=== PATIENT | female | born 1995 | race Two or more races ===

== ENCOUNTER 2021-08-25 20:19 | Emergency (ER) | payer SELFPAY ==
[~2021-08-25] VITALS: Ht 167.6 cm; Wt 63.6 kg
[2021-08-26 00:22] LABS: BILIRUBIN,URINE SMALL (NEG); CLARITY,URINE CLOUDY; COLOR,URINE AMBER; NITRITE,URINE NEGATIVE (NEG); PH,URINE 5.5 (<5.0-8.0); PROTEIN,URINE 100 mg/dL (NEG-TRACE)
--- NOTE | 2021-08-26 00:37 | PHYS DOC ---
General Adult EDM: Chief Complaint: VAGINAL BLEEDING HPI: HPI: Patient is a 25 year-old female patient 2 para 1 currently 6 weeks presenting to the ED today complaining of vaginal bleeding that began yesterday. Patient states it began as spotting and now it is picked up S2 blood clots. Patient denies using more than 1 feminine pad an hour. Denies any abdominal pain or back pain. (THOR UP APRN) Review of Systems: Review of Systems: Constitutional: Denies fever or chills. [] Cardiovascular: Denies chest pain or edema. [] GI: Denies abdominal pain, nausea, vomiting, bloody stools or diarrhea. [] Reports vaginal bleeding in : Denies dysuria. [] Musculoskeletal: Denies back pain or joint pain. [] Integument: Denies rash. [] Neurologic: Denies headache, focal weakness or sensory changes. [] Psychiatric: Denies depression or anxiety. [] (THOR UP BIT SHARPENER) Heart Score: C/O Chest Pain: N/A Risk Factors: Risk Factors: DM, Current or recent (<one month) smoker, HTN, HLP, family hi story of CAD, obesity. Risk Scores: Score 0 - 3: 2.5% MACE over next 6 weeks - Discharge Home Score 4 - 6: 20.3% MACE over next 6 weeks - Admit for Clinical Observation Score 7 - 10: 72.7% MACE over next 6 weeks - Early Invasive Strategies (THOR UP BIT SHARPENER) Physical Exam: PE: Constitutional: Well developed, well nourished, no acute distress, non-toxic appearance. [] Abdomen: Bowel sounds normal, soft, no tenderness, no masses, no pulsatile masses. [] Pelvic exam External pelvic appears normal, small amount of bright red blood in the vaginal vault, no CMT, no adnexal tenderness Skin: Warm, dry, no erythema, no rash. [] Back: No tenderness, no CVA tenderness. [] Extremities: No tenderness, no cyanosis, no clubbing, ROM intact, no edema. [] Neurologic: Alert and oriented X 3, normal motor function, normal sensory function, no focal deficits noted. [] Psychologic: Affect normal, judgement normal, mood normal. [] (THOR UP BIT SHARPENER) EKG: EKG: [] (THOR UP APRN) Radiology/Procedures: Radiology/Procedures: []PROCEDURE: OB TRANSVAG CLINICAL HISTORY: Reason: vag bleedingin / Spl. Instructions: / History: COMPARISON: None available. TECHNIQUE: Transabdominal and endovaginal sonography was performed FINDINGS: Cardiac activity is visualized and documented at a rate of 52 beats per minute. A yolk sac is seen. There is no subchorionic fluid collection. Based on a crown rump length averaging 0.45 cm, the estimated gestational age is 6 weeks, 1 days. Estimated date of delivery is 04/20/2022. The right ovary measures 3.4 cm x 1.8 cm x 1.9 cm. The left ovary was not seen. There is no pelvic free fluid. IMPRESSION: 1. Single live intrauterine gestation with mean sonographic age of 6 weeks, 1 day. The estimated date of delivery is 04/20/2022. heart rate measures 52 bpm, possibly from bradycardia or can also be related to small size. Recommend serial ECG and close sonographic follow-up. 2. No abnormal adnexal masses Electronically signed by: Param Godoy MD (08/26/2021 12:58 AM) [facility] DICTATED and SIGNED BY: PARAM GODOY MD DATE: 08/26/21 [id number] (THOR UP APRN) Course & Med Decision Making: Course & Med Decision Making Pertinent Labs and Imaging studies reviewed. (See chart for details) This is a 25-year-old female patient 2 para 1 presenting to the ED today complaining of vaginal bleeding in , symptoms began 2 days ago OB ultrasound- Single live intrauterine gestation with mean sonographic age of 6 weeks, 1 day. The estimated date of delivery is 04/20/2022. heart rate measures 52 bpm, possibly from bradycardia or can also be related to small size. Recommend serial ECG and close sonographic follow-up. [address] Pina (THOR UP APRN) Course & Med Decision Making This patient was initially seen by the nurse practitioner. Please see her note for further details. I assumed care 0100. The patient was awaiting laboratory exams including type and screen. bradycardia at a heart rate of 52 bpm is noted on ultrasound, she is just over 6 weeks gestation. She is O+ blood type. The patient is resting comfortably, has no complaints of pain or nausea. She denies any heavy bleeding at this time. She has previously had care at [facility]. She plans on following up with them. I told her to contact them first thing tomorrow to arrange for close follow-up, repeat ultrasound. I did explain bradycardia is suggestive of potentially poor prognosis for viable IUP, but serial exams and follow-up is necessary to confirm. She declines any medications for nausea or pain. I told her to adhere to strict pelvic rest, no intercourse, no tampons. I gave her a note for work for the next few days, told her to avoid any strenuous activity. Strict return precautions are given. She verbalizes understanding is comfortable with the plan of care. (SHIV PINA DO) Dragon Disclaimer: Dragon Disclaimer: This electronic medical record was generated, in whole or in part, using a voice recognition dictation system. (THOR UP APRN) Departure Departure Impression: Primary Impression: Threatened Additional Impression: bradycardia Disposition: 01 HOME / SELF CARE / HOMELESS Condition: STABLE Patient Instructions: Threatened Miscarriage Additional Instructions: Return to the ER for more severe pain, heavy or uncontrolled bleeding, severe dizziness, uncontrolled vomiting, weakness, if you are acutely injured or for any other concerns. Stay well-hydrated, avoid any strenuous activity, avoid heavy lifting or squatting. Please contact your OB doctor at [facility] later today to arrange for close follow-up. Your baby does have a low heart rate, this will need to be followed by a repeat ultrasound within the next week to confirm further details. THOR UP APRN Aug 26, 2021 00:37 SHIV PINA DO Aug 26, 2021 02:10
--- NOTE | 2021-08-26 01:01 | RAD ---
CLINICAL HISTORY: Reason: vag bleedingin / Spl. Instructions: / History: COMPARISON: None available. TECHNIQUE: Transabdominal and endovaginal sonography was performed FINDINGS: Cardiac activity is visualized and documented at a rate of 52 beats per minute. A yolk sac is seen. T here is no subchorionic fluid collection. Based on a crown rump length averaging 0.45 cm, the estimated gestational age is 6 weeks, 1 days. Es timated date of delivery is 04/20/2022. The right ovary measures 3.4 cm x 1.8 cm x 1.9 cm. The left ovary was not seen. There is no pelvic free fluid. IMPRESSION: 1. Single live intrauterine gestation with mean sonographic age of 6 weeks, 1 day. The estimated da te of delivery is 04/20/2022. heart rate measures 52 bpm, possibly from bradycardia or can also be related to small size. Recommend serial ECG and close sonographic follow-up. 2. No abnormal adnexal masses Electronically signed by: Param Daniels MD (08/26/2021 12:58 AM) [facility]
[2021-08-26 01:05] LABS: BACTERIA,URINE MODERATE /HPF (0-FEW)
[2021-08-26 01:09] LABS: U PREG PATIENT POSITIVE (NEG)
[2021-08-26 01:09] LABS: BASO # 0.1 x10^3/uL (0.0-0.2); BASO % 1 % (0-3); EOS # 0.2 x10^3/uL (0.0-0.7); EOS % 2 % (0-3); HEMOGLOBIN 13.8 g/dL (12.0-15.5); LYMPH # 2.9 x10^3/uL (1.0-4.8); LYMPH % 32 % (24-48); MEAN CORPUSCULAR HEMOGLOBIN 31 pg (25-35); MEAN CORPUSCULAR HGB CONC 35 g/dL (31-37); MEAN CORPUSCULAR VOLUME 86 fL (79-100); MONO % 11 % (0-9); NEUT # 4.9 x10^3/uL (1.8-7.7); NEUT % 54 % (31-73); PLATELET COUNT 316 x10^3/uL (140-400); RED BLOOD COUNT 4.54 x10^6/uL (3.50-5.40); RED CELL DISTRIBUTION WIDTH 13.3 % (11.5-14.5); WHITE BLOOD COUNT 9.1 x10^3/uL (4.0-11.0)
[2021-08-26 01:23] LABS: CALCIUM 8.5 mg/dL (8.5-10.1); CREATININE 0.6 mg/dL (0.6-1.0); GFR 123.9; POTASSIUM 3.3 mmol/L (3.5-5.1)
[2021-08-26 01:37] LABS: ALBUMIN 3.4 g/dL (3.4-5.0); ALBUMIN/GLOBULIN RATIO 0.7 (1.0-1.7); TOTAL BILIRUBIN 0.3 mg/dL (0.2-1.0)
[2021-08-26 01:55] VITALS: BP 108/71
== END 2021-08-26 02:30 | disposition home or self-care (01) ==
LOC: ER 20:19
DX: O20.0 Threatened abortion (principal); O36.8310 Maternal care for abnormalities of the fetal heart rate or rhythm, first trimester, not applicable or unspecified; Z3A.01 Less than 8 weeks gestation of pregnancy
CPT/HCPCS: 36415; 76817; 80053; 81001; 81025; 84702; 85025; 86850; 86900; 86901; 87086; 99285-25